=== PATIENT | female | born 2000 | race Caucasian/White ===

== ENCOUNTER 2021-11-16 00:16 | Emergency (ER) | payer OTHER ==
[2021-11-16 01:22] VITALS: BP 126/64; PULSE 82; TEMP 97.9; BMI 31.8
[2021-11-16] MEDS ORDERED: ACETAMINOPHEN 500 MG TABLET (FP) PO ONE (03:39)
[2021-11-16] MEDS ORDERED: ACETAMINOPHEN 325 MG TABLET (FP) ONE (04:00)
== END 2021-11-16 06:37 | disposition home or self-care (01) ==
LOC: JER 00:16
DX: R51.9 Headache, unspecified (principal); M54.2 Cervicalgia; V49.50XA Passenger injured in collision with unspecified motor vehicles in traffic accident, initial encounter
CPT/HCPCS: 70450-TC; 72125-TC; 84703; 99284-25